=== PATIENT | male | born 1990 | race Caucasian/White ===

== ENCOUNTER 2016-10-10 23:50 | Emergency (ER) | payer OTHER ==
[~2016-10-10 23:50] MED LIST: FLEXERIL10 MG PO; GUAIFENESIN-COD10 ML PO; IBUPROFEN800 MG PO; PROAIR HFA8.5 GM INH; ZITHROMAX250 M2 PO; ZOFRAN4 M1 SL
--- NOTE | 2016-10-11 01:02 | ED GENERAL ADULT ---
History of Present Illness General Chief Complaint: ETOH/Drug Related Complaint Stated Complaint: "PER EMS WITHDRAWL" Source: patient, police Exam Limitations: no limitations Vital Signs & Intake/Output Vital Signs & Intake/Output Vital Signs Date Time Temp Pulse Resp B/P B/P Pulse O2 O2 Flow FiO2 Mean Ox Delivery Rate 10/11 0120 97.2 82 22 123/66 10/11 0054 97.2 82 22 123/66 98 Room Air Allergies Coded Allergies: acetaminophen (Severe, ITCHY, SEVERE NIGHT TERRORS 03/08/16) cat dander (RASH 03/08/16) Reconcile Medications No Known Home Medications Triage Note: TRIAGE: BIBA FROM PD LOCKUP IN PD CUSTODY W/ C/O HEROIN DETOX. VSS. PATIENT DENIES COMPLAINTS OTHER THAN SLIGHT ANXIETY AND "DIFF BREATHIN ON EMS ARRIVAL," DENIES NOW. NO ACUTE DISTRESS NOTED. PD REMAIN W/ PATIENT. Triage Nurses Notes Reviewed? yes Onset: Evening Duration: hour(s):, constant, continues in ED Timing: recent history Severity: moderate No Modifying Factors: none Associated Symptoms: diaphoresis HPI: Patient admits to 5 bags of heroin snorting daily last used 1 bag yesterday. He is known police custody and complains of nausea vomiting and sweating chills stomach upset. He denies fever chest pain cough shortness breath headache dysuria rash bleeding. Past History Travel History Traveled to [place] past 21 day No Medical History Any Pertinent Medical History? see below for history Neurological: NONE EENT: NONE Cardiovascular: NONE Respiratory: NONE Gastrointestinal: NONE Hepatic: NONE Renal: nephrolithiasis Musculoskeletal: sciatica Psychiatric: anxiety, bipolar disease, depression, substance abuse, PTSD Endocrine: NONE Blood Disorders: NONE Cancer(s): NONE MAINTENANCE AND ENGINEERING MANAGER/Reproductive: NONE Surgical History Surgical History: N Psychosocial History What is your primary language [place] Tobacco Use: Current Daily Use Daily Tobacco Use Amount/Type: => 5 Cigarettes daily Illicit Drug Use: heroin Family History Hx Contributory? No Review of Systems Review of Systems Constitutional: Reports: see HPI, chills, diaphoresis. EENTM: Reports: no symptoms. Respiratory: Reports: no symptoms. Cardiovascular: Reports: no symptoms. GI: Reports: see HPI, nausea. Genitourinary: Reports: no symptoms. Musculoskeletal: Reports: no symptoms. Skin: Reports: no symptoms. Neurological/Psychological: Reports: no symptoms. Hematologic/Endocrine: Reports: no symptoms. Immunologic/Allergic: Reports: no symptoms. All Other Systems: Reviewed and Negative Physical Exam Physical Exam General Appearance: well developed/nourished, alert, awake, anxious, mild distress, obese Head: atraumatic, normal appearance Eyes: Bilateral: normal appearance, PERRL, EOMI. Ears, Nose, Throat: normal pharynx, normal ENT inspection Neck: normal inspection, supple, full range of motion, no midline tenderness Respiratory: normal breath sounds, chest non-tender, no respiratory distress, quiet respiration, lungs clear Cardiovascular: regular rate/rhythm, normal peripheral pulses, norml femoral pulses equa Peripheral Pulses: 4+ carotid (R), 4+ carotid (L) Gastrointestinal: normal bowel sounds, soft, non-tender, no organomegaly Back: normal inspection, normal range of motion, no vertebral tenderness Extremities: normal inspection, normal capillary refill, normal range of motion, no edema Neurologic/Psych: no motor/sensory deficits, awake, alert, oriented x 3, normal gait, normal mood/affect, 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 Skin: intact, normal color, warm/dry Lymphatic: no anterior cervical ashley Core Measures ACS in differential dx? No CVA/TIA Diagnosis: No Severe Sepsis Present: No Septic Shock Present: No Progress Differential Diagnoses I considered the following diagnoses in my evaluation of the patient: Opiate withdrawal Plan of Care: Orders Procedure Date/time Status URINE DRUG SCREEN FOR ER ONLY 10/11 004 Complete Laboratory Tests 10/11/16 0044: Urine Opiates Screen 1369.00, Methadone Screen < 40, Barbiturate Screen < 60, Ur Phencyclidine Scrn < 6.00, Amphetamines Screen < 100, U Benzodiazepines Scrn < 85, Urine Cocaine Screen < 50, Urine Cannabis Screen < 5.00 Initial ED EKG: none Departure Departure Time of Disposition: 99 Disposition: HOME OR SELF CARE Condition: Stable Clinical Impression Primary Impression: Heroin withdrawal Referrals: PATIENT HAS NO PRIMARY CARE DR (PCP/Family) Departure Forms: Customer Survey General Discharge Information Prescriptions: Current Visit Scripts No Known Home Medications Critical Care Note Critical Care Note Critical Care Time: non-applicable
[2016-10-11 01:20] VITALS: BP 123/66
== END 2016-10-11 01:24 ==
LOC: ERH 23:50
DX: F11.23 Opioid dependence with withdrawal (principal)
CPT/HCPCS: 80307; J3101